=== PATIENT | female | born 1975 | race Two or more races ===

== ENCOUNTER 2021-02-06 14:08 | Inpatient (IN) | payer MEDICAID ==
[~2021-02-06] VITALS: Ht 157.5 cm; Wt 71.5 kg
[2021-02-06] MEDS ORDERED: methylPREDNISolone SOD SUCC 125 MG/2 ML VL IV ONE (14:15)
[2021-02-06 15:23] LABS: Basophils # (auto) 0 10 ^3/uL (0-0.2); Basophils % (auto) 0.9 % (0.0-2.0); Eosinophils # (auto) 0 10 ^3/uL (0-0.8); Eosinophils % (auto) 0.7 % (0.0-7.0); Hematocrit 38.1 % (36.0-46.0); Hemoglobin 12.9 g/dL (12.2-16.2); Lymphocytes # (auto) 1.1 10 ^3/uL (0.4-5.4); Lymphocytes % (auto) 27.1 % (10.0-50.0); Mean Corpuscular Hemoglobin 29.2 pg (28.0-32.0); Monocytes # (auto) 0.6 10 ^3/uL (0-1.3); Monocytes % (auto) 14.6 % (0.0-12.0); Neutrophils # (auto) 2.2 10 ^3/uL (1.6-8.6); Neutrophils % (auto) 56.7 % (37.0-80.0); Nucleated Red Blood Cells % 0.1 %; Red Blood Cells 4.42 10^6/uL (4.0-5.20); Red Cell Distribution Width 13.7 % (11.8-14.3)
[2021-02-06 15:41] LABS: Albumin 2.3 g/dL (3.4-5.0); Anion Gap 9 (5-15); Blood Urea Nitrogen 7 mg/dL (7-18); Calcium 8.5 mg/dL (8.5-10.1); Carbon Dioxide 24 mmol/L (21-32); Chloride 104 mmol/L (98-107); Glucose 85 mg/dL (74-106); Potassium 3.2 mmol/L (3.5-5.1); Sodium 137 mmol/L (136-145)
[2021-02-06 15:43] LABS: Urine Bacteria FEW /hpf (None Seen); Urine Blood 1+ /uL (Negative); Urine Specific Gravity 1.007 (1.001-1.035); Urine WBC 8 /hpf (0 - 5)
[2021-02-06 15:50] LABS: Alanine Aminotransferase 56 U/L (13-56); Alkaline Phosphatase 145 U/L (45-117); Aspartate Aminotransferase 44 U/L (15-37); BUN/Creatinine Ratio 14.9; Bilirubin, Total 0.6 mg/dL (0.2-1.0); GFR African American 183 mL/min; GFR Non-African American 152 mL/min; Total Protein 7.5 g/dL (6.4-8.2)
[2021-02-06 16:35] LABS: CRP High Sensitivity > 19.0 mg/dL (< 0.3)
[2021-02-06] MEDS ORDERED: REMDESIVIR PER PHARMACY 0 ML IV SCH (17:30)
[2021-02-06] MEDS ORDERED: MORPHINE SULFATE INJECTION 2 MG/ML SYRG IV PRN (17:30)
[2021-02-06] MEDS ORDERED: NITROGLYCERIN 0.4 MG SL TAB SL PRN (17:30)
[2021-02-06] MEDS ORDERED: POTASSIUM CHLORIDE 40 MEQ, LIDOCAINE 1% (LOCAL ANESTH.) 4 ML in SODIUM CHL 0.9% 250 ML IV ONE (17:45)
[2021-02-06 19:42] VITALS: BP 109/73
[2021-02-06] MEDS: BUDESONIDE (INHALATION) 180 MCG IH IN SCH (22:00)
[2021-02-06] MEDS: ENOXAPARIN SOD 40 MG/0.4 ML SYRINGE SC SCH (22:40)
[2021-02-06] MEDS: ACETAMINOPHEN 500 MG TAB PO PRN (23:21)
[2021-02-07 05:43] LABS: Basophils # (auto) 0 10 ^3/uL (0-0.2); Eosinophils # (auto) 0 10 ^3/uL (0-0.8); Monocytes # (auto) 0.3 10 ^3/uL (0-1.3)
[2021-02-07 05:47] LABS: Basophils % (auto) 0.3 % (0.0-2.0); Hematocrit 37.8 % (36.0-46.0); Hemoglobin 13.2 g/dL (12.2-16.2); Lymphocytes # (auto) 0.6 10 ^3/uL (0.4-5.4); Lymphocytes % (auto) 13.5 % (10.0-50.0); Mean Corpuscular Hemoglobin 30.1 pg (28.0-32.0); Mean Corpuscular Hgb Conc. 34.8 g/dL (32.0-36.0); Mean Corpuscular Volume 86.6 fL (80.0-100.0); Neutrophils # (auto) 3.6 10 ^3/uL (1.6-8.6); Neutrophils % (auto) 80.2 % (37.0-80.0); Nucleated Red Blood Cells % 0.3 %; Red Blood Cells 4.37 10^6/uL (4.0-5.20); White Blood Cell 4.4 10^3/uL (4.4-10.8)
[2021-02-07 06:10] LABS: Albumin 2.2 g/dL (3.4-5.0); Calcium 8.5 mg/dL (8.5-10.1)
[2021-02-07 06:12] LABS: BUN/Creatinine Ratio 22.6; Bilirubin, Total 0.4 mg/dL (0.2-1.0)
[2021-02-07] MEDS: BUDESONIDE (INHALATION) 180 MCG IH IN SCH ×2 (10:00→22:00)
[2021-02-07] MEDS: DexAMETHasone SOD PHOS 10MG/1ML VIAL INJ IV SCH (10:01)
[2021-02-07] MEDS: cefTRIAXone 1GM/50ML D5W 50 ML IV SCH (10:01)
[2021-02-07] MEDS: AZITHROMYCIN 500MG/ 250ML 250 ML IV SCH (10:01)
[2021-02-07] MEDS: ASCORBIC ACID 1,000 MG TAB PO SCH (10:02)
[2021-02-07] MEDS: ZINC SULFATE 220mg CAP or TAB PO SCH (10:02)
[2021-02-07] MEDS: CHOLECALCIFEROL (VITD3) 2,000 UNIT CAP/TAB PO SCH (10:02)
[2021-02-07] MEDS: ENOXAPARIN SOD 40 MG/0.4 ML SYRINGE SC SCH ×2 (10:03→22:00)
[2021-02-07] MEDS: ACETAMINOPHEN 500 MG TAB PO PRN (10:10)
[2021-02-07] MEDS ORDERED: REMDESIVIR 200 MG in NS 210ml LOADING DOSE ADULT IV ONE (15:00)
[2021-02-07] MEDS ORDERED: ERGOCALCIFEROL 50,000 UNIT(1.25MG) CAP PO SCH (15:15)
[2021-02-07] MEDS: HYDROcodone-ACET 5/325MG TAB PO PRN ×2 (17:57→23:56)
[2021-02-07] MEDS: ALBUTEROL SULF HFA 90MCG INH 200DOSE IN PRN (19:47)
[2021-02-08 05:24] LABS: Calcium 8.3 mg/dL (8.5-10.1); Potassium 4.2 mmol/L (3.5-5.1)
[2021-02-08 05:30] LABS: BUN/Creatinine Ratio 36.2; Bilirubin, Total 0.3 mg/dL (0.2-1.0); Total Protein 6.5 g/dL (6.4-8.2)
[2021-02-08] MEDS: cefTRIAXone 1GM/50ML D5W 50 ML IV SCH (09:00)
[2021-02-08] MEDS: BUDESONIDE (INHALATION) 180 MCG IH IN SCH ×2 (09:14→22:00)
[2021-02-08] MEDS: DexAMETHasone SOD PHOS 10MG/1ML VIAL INJ IV SCH (10:00)
[2021-02-08] MEDS: AZITHROMYCIN 500MG/ 250ML 250 ML IV SCH (10:00)
[2021-02-08] MEDS: CHOLECALCIFEROL (VITD3) 2,000 UNIT CAP/TAB PO SCH (10:00)
[2021-02-08] MEDS: ZINC SULFATE 220mg CAP or TAB PO SCH (10:00)
[2021-02-08] MEDS: ASCORBIC ACID 1,000 MG TAB PO SCH (10:00)
[2021-02-08] MEDS: ENOXAPARIN SOD 40 MG/0.4 ML SYRINGE SC SCH ×2 (10:00→21:32)
[2021-02-08] MEDS: REMDESIVIR 100mg 100 MG in SODIUM CHL 0.9% 230 ML IV SCH (15:59)
[2021-02-08 17:00] VITALS: BP 102/67
[2021-02-08] MEDS: HYDROcodone-ACET 5/325MG TAB PO PRN (18:37)
[2021-02-08] MEDS: ACETAMINOPHEN 500 MG TAB PO PRN (21:03)
[2021-02-08 22:00] VITALS: BP 97/58
[2021-02-08] MEDS: ALBUTEROL SULF HFA 90MCG INH 200DOSE IN PRN (22:56)
[2021-02-09 05:00] VITALS: BP 100/62
[2021-02-09 06:25] LABS: Potassium 4.5 mmol/L (3.5-5.1)
[2021-02-09] MEDS: HYDROcodone-ACET 5/325MG TAB PO PRN ×2 (06:32→12:45)
[2021-02-09 06:33] LABS: BUN/Creatinine Ratio 35.6; Calcium 8.9 mg/dL (8.5-10.1)
[2021-02-09 06:36] LABS: Bilirubin, Total 0.3 mg/dL (0.2-1.0); Total Protein 6.6 g/dL (6.4-8.2)
[2021-02-09] MEDS: ALBUTEROL SULF HFA 90MCG INH 200DOSE IN PRN ×2 (07:15→22:40)
[2021-02-09] MEDS: BUDESONIDE (INHALATION) 180 MCG IH IN SCH ×2 (07:16→22:40)
[2021-02-09] MEDS: ACETAMINOPHEN 325 MG TAB PO PRN (07:34)
[2021-02-09 09:00] VITALS: BP 109/69
[2021-02-09] MEDS: cefTRIAXone 1GM/50ML D5W 50 ML IV SCH (09:56)
[2021-02-09] MEDS: FUROSEMIDE 20 MG/2 ML VIAL IV SCH (09:56)
[2021-02-09] MEDS: DexAMETHasone SOD PHOS 10MG/1ML VIAL INJ IV SCH (09:56)
[2021-02-09] MEDS: ASCORBIC ACID 1,000 MG TAB PO SCH (09:57)
[2021-02-09] MEDS: ENOXAPARIN SOD 40 MG/0.4 ML SYRINGE SC SCH ×2 (09:57→21:46)
[2021-02-09] MEDS: CHOLECALCIFEROL (VITD3) 2,000 UNIT CAP/TAB PO SCH (09:57)
[2021-02-09] MEDS: ZINC SULFATE 220mg CAP or TAB PO SCH (09:57)
[2021-02-09] MEDS: AZITHROMYCIN 500MG/ 250ML 250 ML IV SCH (10:56)
[2021-02-09 13:00] VITALS: BP 112/72
[2021-02-09] MEDS ORDERED: KETOROLAC TROMETH 30 MG/ML 1ML VIAL IV ONE (14:15)
[2021-02-09] MEDS ORDERED: MORPHINE SULFATE INJECTION 2 MG/ML SYRG IV PRN (14:15)
[2021-02-09] MEDS: REMDESIVIR 100mg 100 MG in SODIUM CHL 0.9% 230 ML IV SCH (15:12)
[2021-02-09 16:58] VITALS: BP 100/66
[2021-02-09 19:01] VITALS: BP 100/66
[2021-02-09 22:00] VITALS: BP 96/63
[2021-02-10 04:52] VITALS: BP 106/70
[2021-02-10 05:02] LABS: Basophils # (auto) 0 10 ^3/uL (0-0.2); Eosinophils # (auto) 0 10 ^3/uL (0-0.8); Lymphocytes # (auto) 1.5 10 ^3/uL (0.4-5.4); Monocytes # (auto) 0.9 10 ^3/uL (0-1.3); Neutrophils # (auto) 4.7 10 ^3/uL (1.6-8.6)
[2021-02-10 05:03] LABS: Basophils % (auto) 0.4 % (0.0-2.0); Eosinophils % (auto) 0.5 % (0.0-7.0); Lymphocytes % (auto) 21.2 % (10.0-50.0); Mean Corpuscular Hemoglobin 28.8 pg (28.0-32.0); Mean Corpuscular Hgb Conc. 33.2 g/dL (32.0-36.0); Mean Corpuscular Volume 86.7 fL (80.0-100.0); Monocytes % (auto) 12.2 % (0.0-12.0); Neutrophils % (auto) 65.7 % (37.0-80.0); Nucleated Red Blood Cells % 0.2 %; Red Cell Distribution Width 14.2 % (11.8-14.3); White Blood Cell 7.1 10^3/uL (4.4-10.8)
[2021-02-10 05:20] LABS: Potassium 4.3 mmol/L (3.5-5.1)
[2021-02-10 05:31] LABS: Albumin 2.2 g/dL (3.4-5.0); BUN/Creatinine Ratio 29.3; Bilirubin, Total 0.3 mg/dL (0.2-1.0); Calcium 8.8 mg/dL (8.5-10.1); Total Protein 6.5 g/dL (6.4-8.2)
[2021-02-10] MEDS: BUDESONIDE (INHALATION) 180 MCG IH IN SCH ×2 (06:44→22:22)
[2021-02-10] MEDS: ALBUTEROL SULF HFA 90MCG INH 200DOSE IN PRN (06:44)
[2021-02-10 09:00] VITALS: BP 97/63
[2021-02-10] MEDS: cefTRIAXone 1GM/50ML D5W 50 ML IV SCH (09:17)
[2021-02-10] MEDS: FUROSEMIDE 20 MG/2 ML VIAL IV SCH (09:23)
[2021-02-10] MEDS: DexAMETHasone SOD PHOS 10MG/1ML VIAL INJ IV SCH (09:23)
[2021-02-10] MEDS: CHOLECALCIFEROL (VITD3) 2,000 UNIT CAP/TAB PO SCH (09:24)
[2021-02-10] MEDS: ZINC SULFATE 220mg CAP or TAB PO SCH (09:24)
[2021-02-10] MEDS: ASCORBIC ACID 1,000 MG TAB PO SCH (09:24)
[2021-02-10] MEDS: ENOXAPARIN SOD 40 MG/0.4 ML SYRINGE SC SCH ×2 (09:24→21:09)
[2021-02-10 13:00] VITALS: BP 100/66
[2021-02-10] MEDS: AZITHROMYCIN 500MG/ 250ML 250 ML IV SCH (13:26)
[2021-02-10] MEDS: REMDESIVIR 100mg 100 MG in SODIUM CHL 0.9% 230 ML IV SCH (15:36)
[2021-02-10] MEDS: ACETAMINOPHEN 325 MG TAB PO PRN (16:40)
[2021-02-10 17:00] VITALS: BP 97/67
[2021-02-10] MEDS: HYDROcodone-ACET 5/325MG TAB PO PRN (18:49)
[2021-02-10 22:00] VITALS: BP 102/67
[2021-02-11 05:00] VITALS: BP 107/78
[2021-02-11 06:02] LABS: Calcium 8.5 mg/dL (8.5-10.1)
[2021-02-11 06:08] LABS: Albumin 2.4 g/dL (3.4-5.0); Bilirubin, Total 0.4 mg/dL (0.2-1.0); Total Protein 6.6 g/dL (6.4-8.2)
[2021-02-11] MEDS: BUDESONIDE (INHALATION) 180 MCG IH IN SCH ×2 (06:53→22:31)
[2021-02-11] MEDS: ALBUTEROL SULF HFA 90MCG INH 200DOSE IN PRN ×2 (06:53→22:31)
[2021-02-11] MEDS: cefTRIAXone 1GM/50ML D5W 50 ML IV SCH (09:00)
[2021-02-11] MEDS: FUROSEMIDE 20 MG/2 ML VIAL IV SCH (09:01)
[2021-02-11 09:28] VITALS: BP 86/59
[2021-02-11] MEDS: DexAMETHasone SOD PHOS 10MG/1ML VIAL INJ IV SCH (10:06)
[2021-02-11] MEDS: ASCORBIC ACID 1,000 MG TAB PO SCH (10:07)
[2021-02-11] MEDS: CHOLECALCIFEROL (VITD3) 2,000 UNIT CAP/TAB PO SCH (10:07)
[2021-02-11] MEDS: ZINC SULFATE 220mg CAP or TAB PO SCH (10:07)
[2021-02-11] MEDS: ENOXAPARIN SOD 40 MG/0.4 ML SYRINGE SC SCH ×2 (10:08→21:17)
[2021-02-11] MEDS: AZITHROMYCIN 500MG/ 250ML 250 ML IV SCH (11:01)
[2021-02-11 13:00] VITALS: BP 103/59
[2021-02-11] MEDS: HYDROcodone-ACET 5/325MG TAB PO PRN ×2 (13:42→17:54)
[2021-02-11] MEDS ORDERED: LACTULOSE 20Gm/30ML SOLN PO PRN (13:45)
[2021-02-11] MEDS: DOCUSATE SOD 100 MG CAP PO SCH ×2 (13:50→21:17)
[2021-02-11] MEDS: REMDESIVIR 100mg 100 MG in SODIUM CHL 0.9% 230 ML IV SCH (14:46)
[2021-02-11] MEDS: ACETAMINOPHEN 325 MG TAB PO PRN (16:56)
[2021-02-11 17:00] VITALS: BP 93/71
[2021-02-11] MEDS ORDERED: LACTULOSE 20Gm/30ML SOLN PO SCH (18:00)
[2021-02-11 22:00] VITALS: BP 105/63
[2021-02-11] MEDS ORDERED: DOCUSATE SOD 100 MG CAP PO SCH (22:00)
[2021-02-12 05:00] VITALS: BP 90/53
[2021-02-12 05:38] VITALS: BP 97/61
[2021-02-12 05:44] LABS: Basophils # (auto) 0 10 ^3/uL (0-0.2); Basophils % (auto) 0.1 % (0.0-2.0); Eosinophils # (auto) 0 10 ^3/uL (0-0.8); Eosinophils % (auto) 0.1 % (0.0-7.0); Hematocrit 39.1 % (36.0-46.0); Hemoglobin 13.3 g/dL (12.2-16.2); Lymphocytes # (auto) 1.4 10 ^3/uL (0.4-5.4); Lymphocytes % (auto) 22.7 % (10.0-50.0); Mean Corpuscular Hemoglobin 29.4 pg (28.0-32.0); Mean Corpuscular Volume 86.5 fL (80.0-100.0); Monocytes # (auto) 0.7 10 ^3/uL (0-1.3); Monocytes % (auto) 10.6 % (0.0-12.0); Neutrophils # (auto) 4.2 10 ^3/uL (1.6-8.6); Neutrophils % (auto) 66.5 % (37.0-80.0); Nucleated Red Blood Cells % 0.1 %; Red Blood Cells 4.52 10^6/uL (4.0-5.20); Red Cell Distribution Width 14.1 % (11.8-14.3); White Blood Cell 6.3 10^3/uL (4.4-10.8)
[2021-02-12 05:59] LABS: INR 1.11 (0.9-1.15); Partial Thromboplastin Time 28.9 sec (23.6-33.0)
[2021-02-12 06:06] LABS: Albumin 2.5 g/dL (3.4-5.0); Anion Gap 5 (5-15); Blood Urea Nitrogen 9 mg/dL (7-18); Calcium 8.7 mg/dL (8.5-10.1); Carbon Dioxide 27 mmol/L (21-32); Chloride 105 mmol/L (98-107); Glucose 80 mg/dL (74-106); Magnesium 2.6 mg/dL (1.6-2.6); Sodium 137 mmol/L (136-145)
[2021-02-12 06:14] LABS: Alanine Aminotransferase 85 U/L (13-56); Alkaline Phosphatase 114 U/L (45-117); Aspartate Aminotransferase 31 U/L (15-37); BUN/Creatinine Ratio 20.5; Bilirubin, Total 0.4 mg/dL (0.2-1.0); GFR African American 198 mL/min; GFR Non-African American 164 mL/min; Phosphorus 3.4 mg/dL (2.5-4.90); Total Protein 6.4 g/dL (6.4-8.2)
[2021-02-12] MEDS: BUDESONIDE (INHALATION) 180 MCG IH IN SCH (07:07)
[2021-02-12] MEDS: ALBUTEROL SULF HFA 90MCG INH 200DOSE IN PRN (07:07)
[2021-02-12 08:30] VITALS: BP 111/70
[2021-02-12] MEDS: cefTRIAXone 1GM/50ML D5W 50 ML IV SCH (09:56)
[2021-02-12] MEDS: DOCUSATE SOD 100 MG CAP PO SCH (09:57)
[2021-02-12] MEDS: ENOXAPARIN SOD 40 MG/0.4 ML SYRINGE SC SCH (09:57)
[2021-02-12] MEDS: ASCORBIC ACID 1,000 MG TAB PO SCH (09:57)
[2021-02-12] MEDS: CHOLECALCIFEROL (VITD3) 2,000 UNIT CAP/TAB PO SCH (09:57)
[2021-02-12] MEDS: DexAMETHasone SOD PHOS 10MG/1ML VIAL INJ IV SCH (09:57)
[2021-02-12] MEDS: ZINC SULFATE 220mg CAP or TAB PO SCH (09:57)
[2021-02-12] MEDS: FUROSEMIDE 20 MG/2 ML VIAL IV SCH (09:58)
[2021-02-12] MEDS: HYDROcodone-ACET 5/325MG TAB PO PRN (10:20)
[2021-02-12 12:30] VITALS: BP 97/66
[2021-02-12] MEDS ORDERED: KETOROLAC TROMETH 30 MG/ML 1ML VIAL IV ONE (12:45)
[2021-02-12 13:48] VITALS: BP 111/70
[2021-02-12 17:00] VITALS: BP 102/71
== END 2021-02-12 18:04 | disposition home or self-care (01) | DRG 720 ==
LOC: ER 14:08 → EDBD 14:08 → TELE 17:26 → TELE-EAST 02-08 14:03
PROVIDERS: ADMIT Nurse Practitioner Acute Care; ATTEND Internal Medicine
PROC: XW033E5 Introduction of Remdesivir Anti-infective into Peripheral Vein, Percutaneous Approach, New Technology Group 5 (ICD-10-PCS; principal; 2021-02-07)
DX: A41.89 Other specified sepsis (principal); J96.01 Acute respiratory failure with hypoxia; J12.82 Pneumonia due to coronavirus disease 2019; U07.1 COVID-19; D89.839 Cytokine release syndrome, grade unspecified; E87.6 Hypokalemia; N39.0 Urinary tract infection, site not specified; G43.909 Migraine, unspecified, not intractable, without status migrainosus; E66.9 Obesity, unspecified; Z68.32 Body mass index [BMI] 32.0-32.9, adult; Z79.82 Long term (current) use of aspirin; Z98.82 Breast implant status
CPT/HCPCS: 36415; 36600; 71045; 80053; 81001; 82306; 82728; 82805; 83036; 83605; 83615; 83735; 83880; 84100; 84443; 84484; 85025; 85379; 85610; 85730; 86141; 87040; 87426; 93005; 93970; 94640; 96365; 96367; 96375; 99291; G0378; J0696; J1100; J1885; J2001